=== PATIENT | female | born 1955 | race Caucasian/White ===

== ENCOUNTER 2021-08-01 11:23 | Emergency (ER) | payer OTHER, BC ==
[~2021-08-01] VITALS: Ht 157.5 cm; Wt 63.5 kg
[2021-08-01 11:42] VITALS: BP_SYST 122
--- NOTE | 2021-08-01 11:45 | NUR ---
Patient to ER bed 2 to gown for evaluation. Side rails up. Report given to Reba LEARY.
--- NOTE | 2021-08-01 11:57 | NUR ---
Patient to room 2. Family at bedside. Per report received, patient reporting right thigh to knee pain x a couple days while putting up [employer] lights. PMH RA. Was seen at [facility]D and received Gabapentin and Motrin which were ineffective. Awaiting MD evaluation. Will continue to monitor.
--- NOTE | 2021-08-01 12:10 | NUR ---
Dr Herramnn to bedside to evaluate patient
--- NOTE | 2021-08-01 12:49 | NUR ---
Xrays being completed at bedside
[2021-08-01 13:18] LABS: BASOPHILS # (AUTO) 0.1 K/uL (0.0-0.2); BASOPHILS % (AUTO) 0.9 % (0.0-2.0); EOSINOPHILS # (AUTO) 0.2 K/uL (0.0-0.4); EOSINOPHILS % (AUTO) 2.5 % (0.0-4.0); HEMATOCRIT 38.3 % (36-48); HEMOGLOBIN 13.3 g/dL (12.0-16.0); LYMPHOCYTES # (AUTO) 1.4 K/uL (1.0-5.5); LYMPHOCYTES % (AUTO) 20.1 % (20.5-51.5); MEAN CORPUSCULAR HEMOGLOBIN 30 pg (27-31); MEAN CORPUSCULAR HGB CONC 35 % (32-36); MEAN CORPUSCULAR VOLUME 85 fL (79.0-98.0); MONOCYTES # (AUTO) 0.4 K/uL (0.0-1.0); MONOCYTES % (AUTO) 6.1 % (1.7-9.3); NEUTROPHILS # (AUTO) 4.9 K/uL (1.8-7.7); NEUTROPHILS % (AUTO) 70.4 % (40.0-70.0); PLATELET COUNT (AUTO) 155 K/uL (130-430); RED BLOOD CELL COUNT(AUTO) 4.48 MIL/uL (4.2-6.2); RED CELL DISTRIBUTION WIDTH 13.1 % (9.0-15.0); RETICULOCYTE COUNT 2.5 % (0.5-1.5)
[2021-08-01 13:21] LABS: CALCIUM 9.2 mg/dL (8.4-11.0); CREATININE 0.68 mg/dL (0.55-1.30)
[2021-08-01 13:27] LABS: ALBUMIN 3.8 g/dL (3.4-4.8); TOTAL BILIRUBIN 0.9 mg/dL (0.0-1.0)
[2021-08-01] MEDS ORDERED: CYCL10TA24 PO (14:04)
[2021-08-01 15:03] VITALS: BP_SYST 122
--- NOTE | 2021-08-01 15:04 | NUR ---
Patient given written and verbal discharge instructions and verbalizes understanding. ER MD discussed with patient the results and treatment provided. Patient in stable condition. ID arm band removed. . Rx of Flexeril given. Patient educated on pain management and to follow up with PMD. Pain Scale 2/10 . Opportunity for questions provided and answered. Medication side effect fact sheet provided.
== END 2021-08-01 15:02 | disposition home or self-care (01) ==
LOC: SED 11:23
DX: M79.651 Pain in right thigh (principal); R21 Rash and other nonspecific skin eruption
CPT/HCPCS: 36415; 73552; 73560-TC; 80053; 85025; 85044; 85610-TC; 85730-TC; 99284